=== PATIENT | male | born 1955 | race African-American/Black ===

== ENCOUNTER 2017-02-16 18:41 | Emergency (ER) | payer MEDICARE, OTHER ==
[~2017-02-16] VITALS: Ht 162.6 cm; Wt 61.4 kg
[2017-02-16 18:51] VITALS: BP 103/60; PULSE 99; RESP 16; TEMP 99; O2SAT 95
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
[2017-02-16 20:36] LABS: AUTOMATED NEUTROPHIL # 2.1 TH/MM3 (1.8-7.7); BASOPHIL % 0.6 % (0.0-2.0); EOSINOPHIL % 0.3 % (0.0-4.0); HEMATOCRIT 45.1 % (39.0-51.0); HEMO FLAGS DIFF FINAL; LYMPH % 27.4 % (9.0-44.0); LYMPHOCYTE # 0.9 TH/MM3 (1.0-4.8); MEAN CELL VOLUME 90.6 FL (80.0-100.0); MEAN CORPUSCULAR HEMOGLOBIN 30.3 PG (27.0-34.0); MEAN CORPUSCULAR HGB CONC 33.5 % (32.0-36.0); MONO % 8.1 % (0.0-8.0); NEUT % 63.6 % (16.0-70.0); PLATELET COUNT 158 TH/MM3 (150-450); RED BLOOD COUNT 4.98 MIL/MM3 (4.50-5.90); RED CELL DISTRIBUTION WIDTH 12.9 % (11.6-17.2); WHITE BLOOD COUNT 3.3 TH/MM3 (4.0-11.0)
[2017-02-16 20:42] LABS: CHLORIDE 103 MEQ/L (98-107); POTASSIUM 4.4 MEQ/L (3.5-5.1); SODIUM (NA) 140 MEQ/L (136-145)
[2017-02-16 20:46] LABS: ANION GAP 10 MEQ/L (5-15); BICARBONATE 26.7 MEQ/L (21.0-32.0); BLOOD UREA NITROGEN 13 MG/DL (7-18)
[2017-02-16 20:49] LABS: ALT (GPT) 34 U/L (12-78); AST (GOT) 53 U/L (15-37); GLOMERULAR FILTRATION RATE 63 ML/MIN (>89)
[2017-02-16 20:50] LABS: TOTAL BILIRUBIN ADULT 0.6 MG/DL (0.2-1.0)
[2017-02-16 20:52] LABS: ALKALINE PHOSPHATASE 86 U/L (45-117)
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
[2017-02-16] MEDS ORDERED: TRAM50TA PO (21:13)
== END 2017-02-16 21:31 | disposition home or self-care (01) ==
LOC: PHEFT 18:41
DX: H92.03 Otalgia, bilateral (principal); Z87.820 Personal history of traumatic brain injury; F17.210 Nicotine dependence, cigarettes, uncomplicated
CPT/HCPCS: 70450; 80053; 85025; 85652; 86140

== ENCOUNTER 2017-08-23 16:11 | Emergency (ER) | payer MEDICARE, OTHER ==
[~2017-08-23] VITALS: Ht 160 cm; Wt 55.0 kg
[~2017-08-23 16:11] MED LIST: TRAM50TA PO
[2017-08-23 16:12] VITALS: BP 120/82; PULSE 72; RESP 18; TEMP 97.7; O2SAT 97
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
--- NOTE | 2017-08-23 17:01 | RADRPT ---
EXAM DATE/TIME: 08/23/2017 16:51 [facility] COMPARISON: No previous studies available for comparison. INDICATIONS : Left foot pain for the past few weeks. No prior trauma. MEDICAL HISTORY : None. SURGICAL HISTORY : None. ENCOUNTER: Initial ACUITY: 3 weeks PAIN SCORE: 5/10 LOCATION: Left foot. FINDINGS: Three view examination of the left foot demonstrates no soft tissue swelling, dislocation, or fractur e. The tarsal bones appear intact. The interphalangeal and metatarsophalangeal joints are intact. There is mild degenerative changes involving the metatarsal bones. The calcaneus is intact. Bony mi neralization is normal. CONCLUSION: Normal examination for a patient of this age. Mild degenerative changes of the mid tarsal bones. Johan Johnson MD on August 23, 2017 at 16:59 Board Certified Radiologist. This report was verified electronically.
== END 2017-08-23 17:30 | disposition home or self-care (01) ==
LOC: NEPK 16:11
DX: M79.672 Pain in left foot (principal); F17.200 Nicotine dependence, unspecified, uncomplicated
CPT/HCPCS: 73630; 99283; L3260

== ENCOUNTER 2017-12-27 14:01 | Observation (INO) | payer MEDICARE, OTHER ==
[~2017-12-27] VITALS: Ht 162.6 cm; Wt 58.7 kg
[2017-12-27 14:04] VITALS: BP 136/86; PULSE 78; RESP 20; TEMP 98.3; O2SAT 98
[2017-12-27 16:15] LABS: AUTOMATED NEUTROPHIL # 5.5 TH/MM3 (1.8-7.7); BASOPHIL # 0.1 TH/MM3 (0-0.2); BASOPHIL % 0.9 % (0.0-2.0); EOSINOPHIL # 0.2 TH/MM3 (0-0.4); EOSINOPHIL % 1.8 % (0.0-4.0); HEMATOCRIT 46.9 % (39.0-51.0); HEMOGLOBIN 15.7 GM/DL (13.0-17.0); LYMPH % 25.6 % (9.0-44.0); LYMPHOCYTE # 2.1 TH/MM3 (1.0-4.8); MEAN CELL VOLUME 95.5 FL (80.0-100.0); MEAN CORPUSCULAR HGB CONC 33.5 % (32.0-36.0); MEAN PLATELET VOLUME 7.6 FL (7.0-11.0); MONO % 5.2 % (0.0-8.0); MONOCYTE # 0.4 TH/MM3 (0-0.9); NEUT % 66.5 % (16.0-70.0); PLATELET COUNT 228 TH/MM3 (150-450); RED BLOOD COUNT 4.91 MIL/MM3 (4.50-5.90); RED CELL DISTRIBUTION WIDTH 14.5 % (11.6-17.2); WHITE BLOOD COUNT 8.3 TH/MM3 (4.0-11.0)
[2017-12-27 16:24] LABS: BILIRUBIN, URINE NEG (NEG); BLOOD, URINE NEG (NEG); GLUCOSE,URINE NEG (NEG); KETONE, URINE NEG (NEG); MUCUS URINE FEW /lpf (OCC); NITRITE,URINE NEG (NEG); PH, URINE 6.5 (5.0-8.5); PROTHROMBIN TIME - PATIENT 10.6 SEC (9.8-11.6); URINE COLOR LIGHT-YELLOW (YELLW/STRAW); URINE LEUKOCYTE ESTERASE NEG (NEG)
[2017-12-27 16:39] LABS: ALT (GPT) 28 U/L (12-78); AST (GOT) 30 U/L (15-37); BICARBONATE 25.4 MEQ/L (21.0-32.0); BLOOD UREA NITROGEN 10 MG/DL (7-18); CALCIUM 8.7 MG/DL (8.5-10.1); CHLORIDE 108 MEQ/L (98-107); CREATININE 1.11 MG/DL (0.60-1.30); GLOMERULAR FILTRATION RATE 82 ML/MIN (>89); GLUCOSE,RANDOM 84 MG/DL (74-106); MAGNESIUM 2.1 MG/DL (1.5-2.5); SODIUM (NA) 141 MEQ/L (136-145)
[2017-12-27 16:43] LABS: ALKALINE PHOSPHATASE 74 U/L (45-117); TOTAL BILIRUBIN ADULT 0.5 MG/DL (0.2-1.0); TOTAL PROTEIN 7.6 GM/DL (6.4-8.2); TROPONIN I LESS THAN 0.02 NG/ML (0.02-0.05)
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
[2017-12-27] MEDS ORDERED: SODIUM CHLORID 0.9% 500 ML INJ 500 ML IV ONE (19:30)
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
[2017-12-27 20:23] VITALS: BP_SYST 136; BP_SYST 150; BP_SYST 156; BP_DIAS 85; BP_DIAS 87; RESP 16; RESP 17
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
[2017-12-27] MEDS ORDERED: ONDANSETRON HCL 4 MG/2 ML VIAL IVP PRN (23:15)
[2017-12-27] MEDS ORDERED: ACETAMINOPHEN 325 MG TAB PO PRN (23:15)
[2017-12-27] MEDS ORDERED: SODIUM CHLORIDE 0.9% FLUSH 10 ML FLUSH IV FLUSH PRN (23:15)
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
[2017-12-28] VITALS (11 sets, daily range): BP systolic 131–147; BP diastolic 53–90; PULSE 53–63; RESP 16–18; TEMP 97.8–98.1; O2SAT 95–98
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
[2017-12-28 08:37] LABS: AUTOMATED NEUTROPHIL # 3.1 TH/MM3 (1.8-7.7); BASOPHIL # 0.1 TH/MM3 (0-0.2); BASOPHIL % 0.9 % (0.0-2.0); EOSINOPHIL # 0.3 TH/MM3 (0-0.4); EOSINOPHIL % 4.9 % (0.0-4.0); HEMATOCRIT 45.1 % (39.0-51.0); HEMOGLOBIN 15.2 GM/DL (13.0-17.0); LYMPHOCYTE # 1.8 TH/MM3 (1.0-4.8); MEAN CELL VOLUME 95.7 FL (80.0-100.0); MEAN CORPUSCULAR HEMOGLOBIN 32.3 PG (27.0-34.0); MEAN CORPUSCULAR HGB CONC 33.8 % (32.0-36.0); MEAN PLATELET VOLUME 7.7 FL (7.0-11.0); MONO % 7.4 % (0.0-8.0); MONOCYTE # 0.4 TH/MM3 (0-0.9); NEUT % 54.8 % (16.0-70.0); PLATELET COUNT 209 TH/MM3 (150-450); RED BLOOD COUNT 4.71 MIL/MM3 (4.50-5.90); RED CELL DISTRIBUTION WIDTH 13.9 % (11.6-17.2); WHITE BLOOD COUNT 5.7 TH/MM3 (4.0-11.0)
[2017-12-28 09:06] LABS: BICARBONATE 28.3 MEQ/L (21.0-32.0); CALCIUM 9.2 MG/DL (8.5-10.1); CREATININE 0.96 MG/DL (0.60-1.30)
[2017-12-28] MEDS: SODIUM CHLORIDE 0.9% FLUSH 10 ML FLUSH IV FLUSH SCH ×2 (10:13→20:38)
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
--- NOTE | 2017-12-28 15:41 | EKG ---
Date Performed: 12/27/2017 Time Performed: 15:44:13 PTAGE: 62 years EKG: SINUS TACHYCARDIA LEFT ATRIAL ENLARGEMENT ABNORMAL ECG PREVIOUS TRACING : 03/04/2016 16.02 DOCTOR: You Fuentes Interpretating Date/Time 12/28/2017 15:39:49
--- NOTE | 2017-12-28 19:15 | MG ---
cc: ALFRED TELLO M.D. Sex: M REQUESTING PHYSICIAN: Dr. Hernandez. DATE OF STUDY: 12/28/2017 INTRODUCTION: An EEG was obtained on this 62-year-old patient awake and asleep and being evaluated for fainting spells. DESCRIPTION: There is 8 to 10 per second alpha rhythms centrally and posteriorly. The activity is reactive and symmetrical. There are beta rhythms frontally. The patient is awake and drowsy intermittently. Hyperventilation disclosed no significant change. There is some right temporal artifact. INTERPRETATION: Normal awake and asleep EEG. Alfred Tello MD [facility] /6:48 PM /7:08 PM
[2017-12-29] VITALS (7 sets, daily range): BP systolic 108–141; BP diastolic 68–82; PULSE 58–78; RESP 16–18; TEMP 97.8–98.1; O2SAT 94–97
[2017-12-29] MEDS: SODIUM CHLORIDE 0.9% FLUSH 10 ML FLUSH IV FLUSH SCH (09:00)
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
--- NOTE | 2017-12-29 10:12 | HHI.DCPOC ---
Discharge Care Plan Diagnosis: (1) Loss of consciousness (2) Syncope Goals to Promote Your Health * To prevent worsening of your condition and complications * To maintain your health at the optimal level Directions to Meet Your Goals Take your medications as prescribed Follow your dietary instruction Follow activity as directed Keep your appointments as scheduled Take your immunizations and boosters as scheduled If your symptoms worsen call your PCP, if no PCP go to Urgent Care Center or Emergency Room Smoking is Dangerous to Your Health. Avoid second hand smoke Call the 24-hour hour crisis hotline for domestic abuse at Julia Schwartz PA-C Dec 29, 2017 10:12 am
--- NOTE | 2017-12-29 11:35 | ECHRPT ---
Indication: SYNCOPE CONCLUSIONS Normal left ventricular size. Wall thickness is normal. The left ventricular systolic function is low normal with an estimated ejection fraction in the rang e of 50- 55%. BP: / HR: Rhythm: MEASUREMENTS (Male / Female) Normal Values Technical Quality:Good 2D ECHO LV Diastolic Diameter PLAX 4.0 cm 4.2 - 5.9 / 3.9 - 5.3 cm LV Systolic Diameter PLAX 3.0 cm IVS Diastolic Thickness 0.8 cm 0.6 - 1.0 / 0.6 - 0.9 cm LVPW Diastolic Thickness 0.7 cm 0.6 - 1.0 / 0.6 - 0.9 cm LV Relative Wall Thickness 0.4 RV Internal Dim ED PLAX 1.9 cm LA Systolic Diameter LX 3.0 cm 3.0 - 4.0 / 2.7 - 3.8 cm M-MODE Aortic Root Diameter MM 2.6 cm AV Cusp Separation MM 2.0 cm DOPPLER Mitral E Point Velocity 61.7 cm/s Mitral A Point Velocity 45.9 cm/s Mitral E to A Ratio 1.3 TR Peak Velocity 247.0 cm/s TR Peak Gradient 24.4 mmHg FINDINGS LEFT VENTRICLE Normal left ventricular size. Wall thickness is normal. The left ventricular systolic function is low normal with an estimated ejection fraction in the rang e of 50- 55%. RIGHT VENTRICLE Normal right ventricular size and systolic function. LEFT ATRIUM The left atrial size is normal. RIGHT ATRIUM The right atrial size is normal. ATRIAL SEPTUM Normal atrial septal thickness without atrial level shunting by limited color doppler interrogation. AORTA The aortic root and proximal ascending aorta are normal in size on limited imaging. MITRAL VALVE Structurally normal mitral valve. No mitral valve stenosis or regurgitation. AORTIC VALVE Trileaflet aortic valve. No aortic valve stenosis or regurgitation. TRICUSPID VALVE Structurally normal tricuspid valve. No tricuspid valve stenosis or regurgitation. PULMONARY VALVE The pulmonary valve is not well visualized. VESSELS The inferior vena cava is normal in size. PERICARDIUM No pericardial effusion. Tahir Trivedi MD, FACC, [facility] [place] (Electronically Signed) Final Date:29 December 2017 11:34
== END 2017-12-29 16:26 | disposition home or self-care (01) ==
LOC: NEPC 14:01 → NEDA 22:01 → NEPHCDU 23:42
PROVIDERS: ADMIT Family Medicine; ATTEND Family Medicine
DX: R55 Syncope and collapse (principal); R53.1 Weakness; R41.82 Altered mental status, unspecified; R00.0 Tachycardia, unspecified; R94.31 Abnormal electrocardiogram [ECG] [EKG]; G93.89 Other specified disorders of brain; M19.90 Unspecified osteoarthritis, unspecified site; F17.210 Nicotine dependence, cigarettes, uncomplicated; Z87.820 Personal history of traumatic brain injury
CPT/HCPCS: 70450; 71045; 80048; 80053; 80307; 81001; 82550; 82552; 83735; 84484; 85025; 85610; 85730; 93005; 93306; 93880; 95819; 96360; 97161; 99285; G0378; G8987; G8988; J7040

== ENCOUNTER 2018-04-08 17:41 | Emergency (ER) | payer MEDICARE, OTHER ==
[~2018-04-08] VITALS: Ht 162.6 cm; Wt 60.0 kg
[2018-04-08 17:44] VITALS: BP 125/76; PULSE 79; RESP 16; TEMP 97.4; O2SAT 98
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
== END 2018-04-08 19:58 | disposition home or self-care (01) ==
LOC: NEPD 17:41
DX: M79.672 Pain in left foot (principal); G89.29 Other chronic pain; F17.210 Nicotine dependence, cigarettes, uncomplicated
CPT/HCPCS: 73630; 99283